=== PATIENT | female | born 1990 | race Caucasian/White ===

== ENCOUNTER 2017-06-12 10:15 | Outpatient (CLI) | payer BC ==
--- NOTE | 2017-06-12 10:54 | RAD ---
PA AND LATERAL CHEST: Indication: Dyspnea. Comparison: None. FINDINGS: Lungs are clear. Cardiomediastinal silhouette is normal. No acute osseous abnormality is evident. IMPRESSION: No acute cardiopulmonary abnormality. POS: [facility]
== END 2017-06-12 10:16 | disposition home or self-care (01) ==
LOC: RAD 10:15
PROVIDERS: ATTEND Internal Medicine Critical Care Medicine
DX: R06.00 Dyspnea, unspecified (principal)
CPT/HCPCS: 71020

== ENCOUNTER 2018-01-09 07:19 | Outpatient (CLI) | payer BC | END 2018-01-09 07:20 | disposition home or self-care (01) | LOC: BICULT 07:19 | PROVIDERS: ATTEND Family Medicine | DX: D24.9 Benign neoplasm of unspecified breast (principal) ==

== ENCOUNTER 2018-06-05 08:03 | Outpatient (CLI) | payer BC ==
--- NOTE | 2018-06-05 11:52 | MRI ---
MRI OF THE LUMBAR SPINE WIHTOUT CONTRAST: DATE: 06/05/2018. COMPARISON: None. HISTORY: Left-sided thigh pain for 1 week, radiculopathy. TECHNIQUE: Multiplanar, multisequence MR imaging of the lumbar spine is provided without contrast. FINDINGS: Incompletely imaged T2 hyperintense lesion noted in the left hemipelvis, likely associated with the l eft ovary, measuring at least 3.2 cm in greatest dimension. The sagittal STIR imaging demonstrates no focal area of osseous marrow edema. There is no significan t anterolisthesis or retrolisthesis noted within the lumbar spine. On the basis of 5 lumbar-type taurus tebral bodies, the conus medullaris terminates at the T12-L1 level. T12-L1: Intervertebral disk height and signal intensity within normal limits with no significant judith tral canal or neural foraminal stenosis. L1-2: Intervertebral disk height and signal intensity within normal limits with no significant centr al canal or neural foraminal stenosis. L2-3: Intervertebral disk height and signal intensity within normal limits with no significant centr al canal or neural foraminal stenosis. L3-4: Intervertebral disk height and signal intensity within normal limits with no significant centr al canal or neural foraminal stenosis. L4-5: Intervertebral disk height and signal intensity within normal limits with no significant centr al canal or neural foraminal stenosis. L5-S1: Intervertebral disk height and signal intensity within normal limits with no significant cent ral canal or neural foraminal stenosis. The imaged retroperitoneal structures appear grossly unremarkable. IMPRESSION: 1. Incompletely imaged 3.2 cm T2 hyperintense lesion within the left hemipelvis. This could be bett er evaluated with pelvis ultrasound. 2. No significant central canal or neural foraminal stenosis noted within the lumbar spine. POS: [facility]
== END 2018-06-05 08:04 | disposition home or self-care (01) ==
LOC: SCSMRI 08:03
PROVIDERS: ATTEND Family Medicine
DX: M79.652 Pain in left thigh (principal); N94.9 Unspecified condition associated with female genital organs and menstrual cycle
CPT/HCPCS: 72148

== ENCOUNTER 2018-06-10 08:23 | Outpatient (CLI) | payer BC ==
--- NOTE | 2018-06-10 10:00 | ULT ---
PELVIC ULTRASOUND WITH DOPPLER: (Weller-scale, color-flow, spectral Doppler, transabdominal, transvaginal) FINDINGS: The uterus measures 6.9 x 4.1 x 3.5 cm with a mass in the superior portion of the uterus, abbey suring 3.4 x 3.2 x 3.1 cm. No endometrial fluid is seen, and the endometrium measures 7 mm in thickn ess. The right ovary measures 3 x 2.2 x 1.9 cm, and the left ovary measures 3.9 x 3 x 2.0 cm. No adnexal mass or free fluid in the cul-de-sac is seen. Flow is demonstrated to both ovaries. IMPRESSION: Uterine mass, suggestive of a fibroid. Gynecologic consultation is recommended. POS: [facility]
== END 2018-06-10 08:24 | disposition home or self-care (01) ==
LOC: BICULT 08:23
PROVIDERS: ATTEND Family Medicine
DX: R93.5 Abnormal findings on diagnostic imaging of other abdominal regions, including retroperitoneum (principal); N85.8 Other specified noninflammatory disorders of uterus
CPT/HCPCS: 76856

== ENCOUNTER 2021-03-23 16:04 | Outpatient (CLI) | payer OTHER | END 2021-03-23 16:05 | disposition home or self-care (01) | LOC: BICRAD 16:04 | PROVIDERS: ATTEND Nurse Practitioner Family | DX: J06.9 Acute upper respiratory infection, unspecified (principal); R51.9 Headache, unspecified; R09.89 Other specified symptoms and signs involving the circulatory and respiratory systems | CPT/HCPCS: 71046 ==

== ENCOUNTER 2025-05-15 05:51 | Emergency (ER) | payer OTHER ==
[2025-05-15] MEDS ORDERED: Ondansetron PF 4 MG/2 ML Vial ONE ×2 (06:31→06:32)
[2025-05-15] MEDS ORDERED: cefTRIAXone (ROCEPHIN) 1 GM VIAL ONE (06:32)
[2025-05-15 07:03] LABS: #Basophils Less than 0.03 10x3/uL (0.0-0.2); #Eosinophils 0.03 10x3/uL (0.0-0.7); #Monocytes 1.05 10x3/uL (0.11-0.59); #Neutrophils 8.33 10x3/uL (1.40-6.50); %Basophils 0.2 % (0.0-1.0); %Eosinophils 0.3 % (0.0-10.0); %Lymphocytes 14.5 % (21.0-51.0); %Monocytes 9.5 % (0.0-10.0); %Neutrophils 75.2 % (42.0-75.0); Hematocrit 42.0 % (36.0-47.0); Hemoglobin 14.0 g/dL (12.0-16.0); Mean Corpuscular Hemoglobin 32.4 pg (27.0-31.0); Mean Corpuscular Volume 97.2 fL (78.0-98.0); Platelet Count 258 10x3/uL (130-400); Red Blood Cell (RBC) Count 4.32 mill/uL (4.20-5.40); White Blood Cell (WBC) Count 11.07 10x3/uL (4.8-10.8)
[2025-05-15 07:23] LABS: ALT (SGPT) 28 U/L (Less than 34); AST (SGOT) 24 U/L (11-34); Albumin 3.9 g/dL (3.1-4.5); Alkaline Phosphatase 51 U/L (40-110); Anion Gap 13 mmol/L (10-20); BUN (Urea Nitrogen) 11 mg/dL (7.0-18.7); Bilirubin, Total 0.4 mg/dL (0.3-1.2); Calc. Creatinine Clearance 0 mL/min (70-130); Calcium 9.0 mg/dL (7.8-10.44); Carbon Dioxide 24 mmol/L (22-29); Chloride 105 mmol/L (98-107); Globulin 3.1 g/dL (2.4-3.5); Glucose 98 mg/dL (70-105); Lipase 10 U/L (8-78); Potassium 3.9 mmol/L (3.5-5.1); Sodium 138 mmol/L (136-145)
[2025-05-15 07:41] LABS: BHCG - Serum Negative (NEGATIVE); Pregs Control Background? CLEAR/WHITE (CLR/WHITE); Pregs Control Bar Appear? YES (CONTROL BAR)
[2025-05-15 09:10] LABS: Bacteria/HPF 2+ HPF (None Seen); CAUTI Indications for Culture Pelvic or flank pain; Glucose, Urine (Dipstick) Normal (Negative); Leukocyte 500 Leu/uL (Negative); Protein, Urine (Dipstick) Negative (Neg-Trace); Specific Gravity, Urine 1.013 (1.002-1.036); WBC/HPF Greater than 50 HPF (0-3)
[2025-05-15 09:13] LABS: Urine Culture Reflex Yes Yes
== END 2025-05-15 09:46 | disposition home or self-care (01) ==
LOC: ERS 05:51
DX: N39.0 Urinary tract infection, site not specified (principal); N20.0 Calculus of kidney; N10 Acute pyelonephritis; N76.0 Acute vaginitis; B96.89 Other specified bacterial agents as the cause of diseases classified elsewhere
CPT/HCPCS: 74176; 80053; 81001; 83690; 84703; 85025; 87086; 96374; 96375; J0696; J2405